=== PATIENT | male | born 1975 | race Caucasian/White ===

== ENCOUNTER 2018-04-18 18:12 | Observation (INO) | payer OTHER, SELFPAY ==
[2018-04-18] VITALS (9 sets, daily range): BP systolic 129–150; BP diastolic 73–80; PULSE 76–90; RESP 16–29; TEMP 36.4–36.6; O2SAT 94–100; BMI 35.9; BMI 35.8
--- NOTE | 2018-04-18 18:17 | EKG12_ITS ---
Test Reason : CP Blood Pressure : / mmHG Vent. Rate : 095 BPM Atrial Rate : 095 BPM P-R Int : 180 ms QRS Dur : 090 ms QT Int : 338 ms P-R-T Axes : 033 -03 037 degrees QTc Int : 424 ms Normal sinus rhythm Normal ECG Confirmed by JOSE FARR MD ([id number]), state editor DANDY SPRINGER ([id number] on 04/19/2018 5:13:06 PM Referred By: GUANAKITO/ANTONETTE Confirmed By:JOSE FARR MD
--- NOTE | 2018-04-18 18:20 | RAD_ITS ---
STUDY: X-RAY CHEST REASON FOR EXAM: Male, 42 years old. Chest pain TECHNIQUE: Frontal view of the chest COMPARISON: None. FINDINGS: There are surgical clips noted in the right apex. The lungs are clear. There are no pleural effusions. There is no pneumothorax. The heart is normal in size. The visualized osseous structures are within normal limits. RAD/Chest 1 View (Portable) IMPRESSION: No acute thoracic pathology. Electronically Signed: Cornelius Cedeño, at 19:08 EDT Tel , Service support ,
--- NOTE | 2018-04-18 18:40 | ED.RN ---
NO OLD EKG'S IN MUSE
[2018-04-18 18:42] LABS: Absolute Lymphocyte Count 4.38 X10^3/ul (0.83-4.51); Basophil# 0.02 X10^3/uL; Basophil% 0.2 % (0-1); Eosinophil# 0.29 X10^3/uL; Eosinophils% 2.3 % (0-5); Hematocrit 47.4 % (40-54); Hemoglobin 16.1 g/dl (13.0-16.5); Lymphocyte # 4.38 X10^3/ul (4.0); Lymphocyte % 35.2 % (19-41); Mean Corpuscular Hgb 29.7 pg (27.0-32.0); Mean Corpuscular Volume 87.5 fL (80-94); Mean Platelet Vol. 10.2 fl (6.2-12.0); Monocyte# 0.75 X10^3/uL; Neutrophil # 6.97 X10^3/uL (2.7-7.7); Neutrophil % 56.1 % (47-70); Platelet Count 231 K/mm3 (150-450); RBC Distribution Width CV 13.5 % (11.6-14.6); Red Blood Count 5.42 M/mm3 (4.6-6.2); White Blood Count 12.4 K/mm3 (4.4-11.0)
[2018-04-18 18:46] LABS: POSITIVE COUNT NO; POSITIVE DIFFERENTIAL NO; POSITIVE MORPHOLOGY NO
[2018-04-18 19:04] LABS: Anion Gap 7 (5-15); BUN 14 mg/dL (7-18); Calcium,Total 8.3 mg/dL (8.5-10.1); Chloride 108 mmol/L (98-107); Creatinine, Serum 0.87 mg/dL (0.70-1.30); EST Glomerular Filtration Rate 102 mL/min (>60); Est Glom Filt Rate - Afr Amer 123 mL/min (>60); Glucose 107 mg/dL (74-106); Potassium 3.5 mmol/L (3.5-5.1); Sodium Level 140 mmol/L (136-145)
--- NOTE | 2018-04-18 19:14 | ED.VISSUMM ---
- ER Visit Summary Date of Service: 04/18/18 Chief Complaint: Chest pain History of Present Illness: The patient is a 42 M presenting with chest pain. He states this started around noon today. He had severe pain in the mid chest. He states it radiated to the right side of his jaw. He had associated diaphoresis with this. He denies shortness of breath or nausea. He is a smoker. He does not currently have primary care physician. He states he has a remote history of A. fib but has not followed up for this. No PE/DVT risk factors. Physical Examination: Vitals are stable. Patient is afebrile. Alert no acute distress. HEENT exam is unremarkable. Neck is supple. Lungs are clear and equal bilaterally. Heart is regular rate and rhythm. Abdomen is soft nontender nondistended. Extremities are unremarkable. Skin is warm and dry. No focal neurologic deficit. Remainder of exam is unremarkable. Emergency Department Course and Treatment: EKG is sinus rate of 95. Chest x-ray shows no acute process. CBC, chemistries, troponin are unremarkable. Patient was given aspirin on arrival. He is resting comfortably on reevaluation. Will discuss with the hospitalist for observation. Disposition: Observation Impression: Chest pain This note was generated with Anda dictation software. It may contain incorrect words, spelling, and punctuation that were not noted in review of the chart prior to signing ED Disposition - Plan for ED Patient: Chief Complaint: Chest Pain Referrals: Care Physician,No Primary [Primary Care Provider] -
--- NOTE | 2018-04-18 19:17 | ED.DCSUM_ITS ---
- ER Visit Summary Date of Service: 04/18/18 Chief Complaint: Chest pain History of Present Illness: The patient is a 42 M presenting with chest pain. He states this started around noon today. He had severe pain in the mid chest. He states it radiated to the right side of his jaw. He had associated diaphoresis with this. He denies shortness of breath or nausea. He is a smoker. He does not currently have primary care physician. He states he has a remote history of A. fib but has not followed up for this. No PE/DVT risk factors. Physical Examination: Vitals are stable. Patient is afebrile. Alert no acute distress. HEENT exam is unremarkable. Neck is supple. Lungs are clear and equal bilaterally. Heart is regular rate and rhythm. Abdomen is soft nontender nondistended. Extremities are unremarkable. Skin is warm and dry. No focal neurologic deficit. Remainder of exam is unremarkable. Emergency Department Course and Treatment: EKG is sinus rate of 95. Chest x- ray shows no acute process. CBC, chemistries, troponin are unremarkable. Patient was given aspirin on arrival. He is resting comfortably on reevaluation. Will discuss with the hospitalist for observation. Disposition: Observation Impression: Chest pain This note was generated with TRUE [employer]wear dictation software. It may contain incorrect words, spelling, and punctuation that were not noted in review of the chart prior to signing ED Disposition - Plan for ED Patient: Chief Complaint: Chest Pain Referrals: Care Physician,No Primary [Primary Care Provider] -
[2018-04-18] MEDS: Aspirin 325 MG Tablet PO (19:20)
--- NOTE | 2018-04-18 19:52 | PCM.HP.STD ---
Problem List (1) Chest pain Status: Acute Qualifiers: Chest pain type: chest pain due to myocardial ischemia Ischemic chest pain type: stable angina pectoris Qualified Code(s): I20.8 - Other forms of angina pectoris (2) Afib Status: Chronic Qualifiers: Atrial fibrillation type: paroxysmal Qualified Code(s): I48.0 - Paroxysmal atrial fibrillation History of Present Illness Date of Admission: 04/18/18 Chief Complaint: chest pain The patient is a 42 year old M who was in his normal developed chest pain today. 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 It additionally went down his right arm and to his right jaw. Symptoms resolve spontaneously though the patient still does complain of some ongoing chest pain. Patient presented to the emergency room and had a workup that was unremarkable. Patient is being further admitted for further chest pain evaluation. Patient states that he did become diaphoretic with this though did not become short of breath. No nausea or vomiting. Patient has had chest pains intermittently related with indigestion and different from what he experienced today. [] Past Medical History Past Medical History (Chronic Problems): Chronic Problems Afib (Chronic) Medical History: Medical History (Last Updated 04/18/18 @ 20:00 by Bijan Estrella DO) Migraine G43.909 Paroxysmal A-fib I48.0 Pneumothorax J93.9 Hypertension I10 Allergies No Known Allergies Allergy (Verified 04/18/18 18:13) Home Medications: Ambulatory Orders Medication Instructions Recorded Omeprazole 20 mg PO DAILY 04/18/18 Surgical History: - - Patient had surgical decortication of a right sided spontaneous pneumothorax Psychiatric History: No pertinent psych hx Lives: Spouse/ Significant Other Smoking Status: Current every day smoker Tobacco Use: Cigars Alcohol: None Drugs: None - *Family History Maternal History Items: - - No heart disease Review of Systems Constitutional: Denies: Anorexia, Chills, Fever Eyes: Denies: Blurred vision, Double vision HEENT: Denies: Head Aches, Sinus Congestion, Sinus Drainage Cardiovascular: Reports: Chest Pain. Denies: Edema Respiratory: Denies: Cough, Shortness of breath at rest, Sputum production Gastrointestinal: Denies: Abdominal Pain, Nausea, Vomiting Genitourinary: Denies: Dysuria Musculoskeletal: Reports: Arm Pain - Right arm pain Skin: Denies: Dryness, Rash, Wounds Neurological: Reports: Blurred vision - Gets occasional visual scotomata with headaches that he experiences., Headaches - Gets 30-40 headaches per year. Patient states that he can go months without a headache and then he will have a headache persist for several days.. Denies: Focal weakness, Numbness, Tingling Psychiatric: Denies: Anxiety, Depression Endocrine: Denies: Change in Body Habitus Hematologic/ Lymphatic: Denies: Easy Bruising, Easy Bleeding, Hx of blood clot Comment: All other review systems are negative except for as mentioned above in the HPI and review of systems. VTE Information - Inpt Only VTE Present on Admission: No VTE Pharm Prophylaxis ordered?: Yes Patient Problems: Active and Suspected Problems Chest pain (Acute) - Physical Exam General: Alert, Cooperative, No apparent distress HEENT: Atraumatic, Normocephalic Oral: Moist Mucosa, No Gingival or Mucosal Lesions/ Ulcerations Neck: No Nodes, Thyroid Normal Size and Texture Lungs: Clear to auscultation, Normal air movement, No rhonchi, No wheeze Cardiovascular: Regular rate, Regular Rhythm, Normal S1, Normal S2, No murmurs Abdomen: Bowel Sounds Present, Soft, Non Tender, Non-Distended, No Hepato-splenomegaly, Obese Extremities: No edema, No Calf Tenderness Skin: No rashes, No breakdown Musculoskeletal: No Tenderness to Palpation of Joints or Extremities, No Muscle Wasting Neurological: Deep Tendon Reflexes 2+/4 and Symmetrical, Neuro grossly intact, Coordination normal Psych/Mental Status: Normal Affect, Appropriate Vital Signs Temp Pulse Resp BP Pulse Ox 36.6 C 76 18 130/79 H 100 04/18/18 19:38 04/18/18 19:38 04/18/18 19:38 04/18/18 19:38 04/18/18 19:38 Clinical Impression(s) from Imaging Studies Chest X-Ray 04/18/18 18:20 IMPRESSION: No acute thoracic pathology. Electronically Signed: Cornelius Cedeño, at 19:08 EDT Tel , Service support , EKG reviewed and showed normal sinus rhythm without any acute changes. Assessment/Plan All Active Problems Chest pain (Acute) 1. Chest pain/stable angina Workup thus far is negative ARLET score of 1 Is to cycle the pain patient's troponins and for the patient undergo a treadmill stress test on the . If troponins become elevated or patient has an abnormal stress test and cardiology will need to be involved, however, if that is all negative then anticipate patient being discharged. 2. Hypertension Had been on medication before but due to insurance reasons stopped taking it. Will monitor the patient's blood pressure was here and see if agents would be necessary upon discharge. 3. Paroxysmal atrial fibrillation Had been seeing a machine worker at the [facility] but has not followed up in some time. If patient's cardiac workup here is negative patient can follow-up with cardiology as outpatient 4. Migraines Patient averages several times per month. Recommend patient follow-up with neurology to see about using some preventative medication as outpatient. Patient not currently having any migraines at this time but does have visual scotomata prior to his migraines 5. DVT prophylaxis with Lovenox
--- NOTE | 2018-04-18 20:00 | EKG12_ITS ---
Test Reason : ADMISSION EKG Blood Pressure : / mmHG Vent. Rate : 078 BPM Atrial Rate : 078 BPM P-R Int : 194 ms QRS Dur : 100 ms QT Int : 382 ms P-R-T Axes : 036 016 032 degrees QTc Int : 435 ms Normal sinus rhythm Normal ECG Confirmed by CAMILO KENT, MARTA ([id number]), film editor DANDY SPRINGER ([id number]) on 04/21/2018 1:42:49 PM Referred By: RADHA Confirmed By:MARTA PAGE MD
--- NOTE | 2018-04-18 20:01 | HP.PCM_ITS ---
Problem List (1) Chest pain Status: Acute Qualifiers: Chest pain type: chest pain due to myocardial ischemia Ischemic chest pain type: stable angina pectoris Qualified Code(s): I20.8 - Other forms of angina pectoris (2) Afib Status: Chronic Qualifiers: Atrial fibrillation type: paroxysmal Qualified Code(s): I48.0 - Paroxysmal atrial fibrillation History of Present Illness Date of Admission: 04/18/18 Chief Complaint: chest pain The patient is a 42 year old M who was in his normal developed chest pain today. 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 It additionally went down his right arm and to his right jaw. Symptoms resolve spontaneously though the patient still does complain of some ongoing chest pain. Patient presented to the emergency room and had a workup that was unremarkable. Patient is being further admitted for further chest pain evaluation. Patient states that he did become diaphoretic with this though did not become short of breath. No nausea or vomiting. Patient has had chest pains intermittently related with indigestion and different from what he experienced today. [] Past Medical History Past Medical History (Chronic Problems): Chronic Problems Afib (Chronic) Medical History: Medical History (Last Updated 04/18/18 @ 20:00 by Bijan Estrella DO) Migraine G43.909 Paroxysmal A-fib I48.0 Pneumothorax J93.9 Hypertension I10 Allergies No Known Allergies Allergy (Verified 04/18/18 18:13) Home Medications: Ambulatory Orders Medication Instructions Recorded Omeprazole 20 mg PO DAILY 04/18/18 Surgical History: - - Patient had surgical decortication of a right sided spontaneous pneumothorax Psychiatric History: No pertinent psych hx Lives: Spouse/ Significant Other Smoking Status: Current every day smoker Tobacco Use: Cigars Alcohol: None Drugs: None - *Family History Maternal History Items: - - No heart disease Review of Systems Constitutional: Denies: Anorexia, Chills, Fever Eyes: Denies: Blurred vision, Double vision HEENT: Denies: Head Aches, Sinus Congestion, Sinus Drainage Cardiovascular: Reports: Chest Pain. Denies: Edema Respiratory: Denies: Cough, Shortness of breath at rest, Sputum production Gastrointestinal: Denies: Abdominal Pain, Nausea, Vomiting Genitourinary: Denies: Dysuria Musculoskeletal: Reports: Arm Pain - Right arm pain Skin: Denies: Dryness, Rash, Wounds Neurological: Reports: Blurred vision - Gets occasional visual scotomata with headaches that he experiences., Headaches - Gets 30-40 headaches per year. Patient states that he can go months without a headache and then he will have a headache persist for several days.. Denies: Focal weakness, Numbness, Tingling Psychiatric: Denies: Anxiety, Depression Endocrine: Denies: Change in Body Habitus Hematologic/ Lymphatic: Denies: Easy Bruising, Easy Bleeding, Hx of blood clot Comment: All other review systems are negative except for as mentioned above in the HPI and review of systems. VTE Information - Inpt Only VTE Present on Admission: No VTE Pharm Prophylaxis ordered?: Yes Patient Problems: Active and Suspected Problems Chest pain (Acute) - Physical Exam General: Alert, Cooperative, No apparent distress HEENT: Atraumatic, Normocephalic Oral: Moist Mucosa, No Gingival or Mucosal Lesions/ Ulcerations Neck: No Nodes, Thyroid Normal Size and Texture Lungs: Clear to auscultation, Normal air movement, No rhonchi, No wheeze Cardiovascular: Regular rate, Regular Rhythm, Normal S1, Normal S2, No murmurs Abdomen: Bowel Sounds Present, Soft, Non Tender, Non-Distended, No Hepato- splenomegaly, Obese Extremities: No edema, No Calf Tenderness Skin: No rashes, No breakdown Musculoskeletal: No Tenderness to Palpation of Joints or Extremities, No Muscle Wasting Neurological: Deep Tendon Reflexes 2+/4 and Symmetrical, Neuro grossly intact, Coordination normal Psych/Mental Status: Normal Affect, Appropriate Vital Signs Temp Pulse Resp BP Pulse Ox 36.6 C 76 18 130/79 H 100 04/18/18 19:38 04/18/18 19:38 04/18/18 19:38 04/18/18 19:38 04/18/18 19:38 Clinical Impression(s) from Imaging Studies Chest X-Ray 04/18/18 18:20 IMPRESSION: No acute thoracic pathology. Electronically Signed: Cornelius Cedeño, at 19:08 EDT Tel , Service support , EKG reviewed and showed normal sinus rhythm without any acute changes. Assessment/Plan All Active Problems Chest pain (Acute) 1. Chest pain/stable angina * Workup thus far is negative * ARLET score of 1 * Is to cycle the pain patient's troponins and for the patient undergo a treadmill stress test on the . * If troponins become elevated or patient has an abnormal stress test and cardiology will need to be involved, however, if that is all negative then anticipate patient being discharged. 2. Hypertension * Had been on medication before but due to insurance reasons stopped taking it. Will monitor the patient's blood pressure was here and see if agents would be necessary upon discharge. 3. Paroxysmal atrial fibrillation * Had been seeing a marketing analyst at the [facility] but has not followed up in some time. * If patient's cardiac workup here is negative patient can follow-up with cardiology as outpatient 4. Migraines * Patient averages several times per month. Recommend patient follow-up with neurology to see about using some preventative medication as outpatient. Patient not currently having any migraines at this time but does have visual scotomata prior to his migraines 5. DVT prophylaxis with Lovenox
[2018-04-19 02:05] VITALS: BP 122/67; PULSE 61; RESP 20; TEMP 36.7; O2SAT 98
[2018-04-19 03:01] VITALS: PULSE 62
[2018-04-19 05:34] LABS: Absolute Lymphocyte Count 3.28 X10^3/ul (0.83-4.51); Absolute Neutrophil Count 6.3 X10^3/uL (2.0-7.7); Basophil# 0.02 X10^3/uL; Basophil% 0.2 % (0-1); Eosinophil# 0.31 X10^3/uL; Eosinophils% 2.8 % (0-5); Hematocrit 47.7 % (40-54); Hemoglobin 15.9 g/dl (13.0-16.5); Lymphocyte # 3.28 X10^3/ul (4.0); Lymphocyte % 29.5 % (19-41); Mean Corp Hgb Conc 33.3 g/gl (32-36); Mean Corpuscular Hgb 29.6 pg (27.0-32.0); Mean Corpuscular Volume 88.8 fL (80-94); Mean Platelet Vol. 10.2 fl (6.2-12.0); Monocyte# 1.21 X10^3/uL; Monocyte% 10.9 % (0-10); Neutrophil % 56.5 % (47-70); Platelet Count 207 K/mm3 (150-450); RBC Distribution Width CV 13.6 % (11.6-14.6); RBC Distribution Width SD 44.3 fl (35.1-43.9); Red Blood Count 5.37 M/mm3 (4.6-6.2); White Blood Count 11.1 K/mm3 (4.4-11.0)
[2018-04-19 05:38] LABS: International Normalized Ratio 0.9; POSITIVE COUNT NO; POSITIVE DIFFERENTIAL NO; POSITIVE MORPHOLOGY NO; Prothrombin Time (Protime)PT. 12.6 SECONDS (11.7-14.9)
[2018-04-19 05:39] LABS: Partial Thromboplast Time 30.8 Seconds (24.1-36.2)
--- NOTE | 2018-04-19 05:55 | EKG12_ITS ---
Test Reason : AM EKG Blood Pressure : / mmHG Vent. Rate : 068 BPM Atrial Rate : 068 BPM P-R Int : 180 ms QRS Dur : 108 ms QT Int : 414 ms P-R-T Axes : 019 -02 014 degrees QTc Int : 440 ms Normal sinus rhythm Inferior infarct , age undetermined Abnormal ECG Confirmed by CAMILO KENT, MARTA ([id number]), acquisition editor DANDY SPRINGER ([id number]) on 04/21/2018 1:41:25 PM Referred By: RADHA Confirmed By:MARTA PAGE MD
[2018-04-19 06:12] VITALS: BP 131/82; PULSE 66; RESP 20; TEMP 36.6; O2SAT 98
[2018-04-19 06:17] LABS: Anion Gap 7 (5-15); BUN 13 mg/dL (7-18); BUN/Creat Ratio 17.6 RATIO (10-20); Chloride 109 mmol/L (98-107); Cholesterol 166 mg/dL (200); Creatinine, Serum 0.74 mg/dL (0.70-1.30); EST Glomerular Filtration Rate 123 mL/min (>60); Est Glom Filt Rate - Afr Amer 149 mL/min (>60); Glucose 106 mg/dL (74-106); High Density Lipoprotein 18 mg/dL; Potassium 4.4 mmol/L (3.5-5.1); Sodium Level 143 mmol/L (136-145); Triglycerides 564 mg/dL
[2018-04-19] MEDS: Aspirin E.C. 81 MG Tablet PO (06:19)
[2018-04-19] MEDS: 0.9% NaCl Peripheral Flush Adult/Peds IV (06:19)
[2018-04-19 06:56] VITALS: PULSE 62
[2018-04-19] MEDS: Pantoprazole Sodium 20 MG Tablet PO (09:54)
[2018-04-19 09:55] VITALS: BP 129/76; PULSE 85; RESP 16; TEMP 36.7; O2SAT 97
[2018-04-19 11:10] VITALS: PULSE 78
--- NOTE | 2018-04-19 13:00 | STRESSREP_ITS ---
Stress Test Report Exercise myocardial perfusion stress test. 42-year-old male with a history of chest pain. Stress protocol: Resting EKG demonstrated normal sinus rhythm with a rate of 61 bpm normal intervals and noted resting blood pressure is 150/88 mmHg. The patient exercised according to regular Galo protocol for a total duration of 9 minutes the maximum heart rate attained was 173 bpm which was 97% of maximum predicted heart rate. Patient completed stage III of the Galo protocol. The maximum workload attained was 10.1 metabolic equivalents. At rest there were no ST or T -wave changes noted suggest ischemia peak exercise upsloping ST changes only were noted with no meet the criteria for ischemia. No clinical angina was noted the test was terminated due to leg fatigue. The resting blood pressure is 150/88 with a peak blood pressure 210/98 mmHg. Hypertensive response to exercise was noted. Myocardial perfusion protocol. 14.4 mCi of technetium 99m sestamibi was injected at rest. The patient exercised according to regular Galo protocol for total duration of 9 minutes. At peak exercise 45.0 mCi of technetium 99m sestamibi was injected stress images were obtained stress and rest images were reconstructed and compared in the short axis vertical long horizontal long axis. Gated images were also obtained Perfusion SPECT analysis: Review of the stress images demonstrate normal uptake of tracer noted in all areas of the myocardium. There is mild thinning noted in the apex noted. This is present on the stress and rest images to a similar extent. No areas of reversibility are noted suggest ischemia. Gated SPECT analysis: The gated ejection fraction is 68%. Conclusion: Normal exercise myocardial perfusion stress test at a high workload. No clinical angina noted Hypertensive response to exercise. Preserved ejection fraction.
--- NOTE | 2018-04-19 13:33 | PCM.DC ---
- Discharge Diagnoses Current Active Problems: Current Active and Chronic Problems (Last Updated 04/18/18 @ 20:00 by Bijan Estrella DO) Chest pain (Acute) Afib (Chronic) You will use the following diet at home:: Regular Discharge Activity: Return to Normal Activity Instructions: ED Chest Pain NonCardiac Allergies/Adverse Reactions: Allergies No Known Allergies Allergy (Verified 04/18/18 18:13) Medications to take at Discharge Omeprazole 20 mg PO DAILY 04/18/18 Primary Care Physician: Care Physician,No Primary [Primary Care Provider] - Within 2 Weeks
--- NOTE | 2018-04-19 13:34 | DS.PCM_ITS ---
Discharge Date and Diagnosis - Problem List Patient Problems: Active and Suspected Problems (Last Updated 04/18/18 @ 20:00 by Bijan Estrella DO ) Chest pain (Acute) Date of Admission: 04/18/18 Date of Discharge: 04/19/18 - Primary Discharge Diagnosis Active and Suspected Problems (Last Updated 04/18/18 @ 20:00 by Bijan Estrella DO ) Chest pain (Acute) - Secondary Discharge Diagnosis Chronic Problems (Last Updated 04/18/18 @ 20:00 by Bijan Estrella DO) Afib (Chronic) Hospital Course and Treatment Imaging Results: 04/19/18 08:04 Nuclear Stress Test - Treadmhi [NM] Routine Summary of Care Provided: The patient is a 42 year old M who presented to the emergency room after he developed chest pain. 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 He was evaluated in the emergency room and then placed in the progressive care unit, he rule out acute coronary syndrome with negative cardiac enzymes. He then underwent a stress test that was negative for ischemia. The patient was discharged home in a stable condition symptom-free and recommended to follow with the primary care doctor. Discharge Diet: No Restrictions Discharge Activity: Return to Normal Activity Home Medications: Medications to take at Discharge Omeprazole 20 mg PO DAILY 04/18/18 Primary Care Physician: Care Physician,No Primary [Primary Care Provider] - Within 2 Weeks Patient Instructions: ED Chest Pain NonCardiac Medical Necessity - Tobacco Use Smoking Status: Current every day smoker Tobacco Use: Cigars Meaningful Use Info Meaningful Use Diagnoses (Choose all that apply): None applicable Code Visit OBSV E&M: 97422 Observation care discharge
== END 2018-04-19 13:34 | disposition home or self-care (01) ==
LOC: ED 19:46 → PCU 04-19 07:29
PROVIDERS: Emergency Provider Emergency Medicine; Visit Provider Internal Medicine
DX: R07.89 Other chest pain (principal); I48.0 Paroxysmal atrial fibrillation; I10 Essential (primary) hypertension; Z79.899 Other long term (current) drug therapy; F17.290 Nicotine dependence, other tobacco product, uncomplicated; G43.909 Migraine, unspecified, not intractable, without status migrainosus; K21.9 Gastro-esophageal reflux disease without esophagitis
CPT/HCPCS: 36415; 71045; 78452; 80048; 80061; 84484; 85025; 85610; 85730; 93005; 93017; 97802; 99218; 99285; 99406; A9500; A4216; G0378

== ENCOUNTER 2018-08-22 08:26 | Day surgery (SDC) | payer OTHER, SELFPAY ==
[2018-08-22 08:40] VITALS: BP 137/79; PULSE 73; RESP 16; TEMP 36.7; O2SAT 97; BMI 35.1
[2018-08-22 10:10] VITALS: BP 118/72; BP 137/79; PULSE 74; RESP 18; TEMP 36.6; O2SAT 94
--- NOTE | 2018-08-22 10:12 | OP.ENDO_ITS ---
Patient Name: Fish Arceo Procedure Date: 08/22/2018 9:45 AM Date of : 1975 Age: 42 Procedure: Colonoscopy Indications: Hematochezia Providers: Coy Child MD Medicines: Monitored Anesthesia Care Patient Profile: This is a 42 year old male. Last Colonoscopy: none. The patient's first colonoscopy is today. Complications: No immediate complications. Procedure: Pre-Anesthesia Assessment: - Prior to the procedure, a History and Physical was performed, and patient medications and allergies were reviewed. The patient's tolerance of previous anesthesia was also reviewed. The risks and benefits of the procedure and the sedation options and risks were discussed with the patient. All questions were answered, and informed consent was obtained. Prior Anticoagulants: The patient has taken no previous anticoagulant or antiplatelet agents. After reviewing the risks and benefits, the patient was deemed in satisfactory condition to undergo the procedure. After I obtained informed consent, the scope was passed under direct vision. Throughout the procedure, the patient's blood pressure, pulse, and oxygen saturations were monitored continuously. The colonoscope was introduced through the anus and advanced to the cecum, identified by the appendiceal orifice, ileocecal valve and palpation. The colonoscopy was performed without difficulty. The patient tolerated the procedure well. The quality of the bowel preparation was good. Scope In: 9:53:44 AM Scope Withdrawal Time 0 hours 6 minutes 9 seconds Scope Out: 10:05:49 AM Total Procedure Duration Time 0 hours 12 minutes 5 seconds Findings: The perianal and digital rectal examinations were normal. The entire examined colon appeared normal on direct and retroflexion views. Impression: - The entire examined colon is normal on direct and retroflexion views. - No specimens collected. Recommendation: - Discharge patient to home. - Resume previous diet. - Continue present medications. - Refer to a adolescent coordinator if symptoms persist for capsule endoscopy. - Repeat colonoscopy in 10 years for screening purposes. Procedure Code(s): --- Professional --- 16120, Colonoscopy, flexible; diagnostic, including collection of specimen(s) by brushing or washing, when performed (separate procedure) Diagnosis Code(s): --- Professional --- K92.1, Melena (includes Hematochezia) CPT copyright 2017 [employer]. All rights reserved. The codes documented in this report are preliminary and upon windows systems architect review may be revised to meet current compliance requirements. Coy Child MD 08/22/2018 10:12:38 AM This report has been signed electronically. Number of Addenda: 0 Note Initiated On: 08/22/2018 9:45 AM
[2018-08-22 10:15] VITALS: BP 118/66; BP 137/79; PULSE 76; RESP 18; O2SAT 96
[2018-08-22 10:20] VITALS: BP 114/71; BP 137/79; PULSE 62; RESP 18; O2SAT 95
[2018-08-22 10:25] VITALS: BP 110/52; BP 137/79; PULSE 60; RESP 16; TEMP 36.7; O2SAT 100
[2018-08-22 10:39] VITALS: BP 137/79
== END 2018-08-22 10:40 | disposition home or self-care (01) ==
LOC: EN 08:26
PROVIDERS: Referring Provider Surgery; Visit Provider Surgery
PROC: 0DJD8ZZ Inspection of Lower Intestinal Tract, Via Natural or Artificial Opening Endoscopic (ICD-10-PCS; CPT 45378; principal; 2018-08-22 09:25)
DX: K92.1 Melena (principal); K21.9 Gastro-esophageal reflux disease without esophagitis; I48.0 Paroxysmal atrial fibrillation; I10 Essential (primary) hypertension; F17.200 Nicotine dependence, unspecified, uncomplicated; Z79.899 Other long term (current) drug therapy
CPT/HCPCS: 45378; J7120

== ENCOUNTER → 2018-11-03 15:36 | Outpatient (CLI) | payer OTHER, SELFPAY ==
[2018-11-03 15:46] LABS: Bacteria 0 SEEN /hpf (None Seen); Mucous, Urine 0 SEEN /hpf (<or=2+); Red Blood Cells-Urine 0 SEEN /hpf (0-5); White Blood Cells 0 SEEN /hpf (0-5)
[2018-11-03 17:46] LABS: Color, Urine Yellow (Yellow); Glucose, Dipstick Normal (Normal); Ketone-Dipstick Negative (Negative); Leukocyte Esterase-Dipstick Negative /ul (Negative); Nitrite-Dipstick Negative (Negative); Occult Blood-Urine Negative /ul (Negative); Protein-Dipstick Negative (Negative); Specific Gravity, Urine 1.015 (1.002-1.030); Urine Bilirubin Dipstick Negative (Negative); Urine Clarity Clear (Clear); Urine Urobilinogen Normal (Normal)
[2018-11-03 17:54] LABS: Squamous Epithelial Cells - UA 0-5 SEEN /hpf (0-5)
[2018-11-03 18:01] LABS: Absolute Lymphocyte Count 2.75 X10^3/ul (0.83-4.51); Absolute Neutrophil Count 5.5 X10^3/uL (2.0-7.7); Basophil# 0.02 X10^3/uL; Basophil% 0.2 % (0-1); Eosinophil# 0.11 X10^3/uL; Eosinophils% 1.2 % (0-5); Hematocrit 44.9 % (40-54); Hemoglobin 15.5 g/dl (13.0-16.5); Lymphocyte # 2.75 X10^3/ul (4.0); Mean Corp Hgb Conc 34.5 g/gl (32-36); Mean Corpuscular Hgb 29.6 pg (27.0-32.0); Mean Corpuscular Volume 85.7 fL (80-94); Mean Platelet Vol. 10.8 fl (6.2-12.0); Monocyte# 0.74 X10^3/uL; Monocyte% 8.1 % (0-10); Neutrophil # 5.52 X10^3/uL (2.7-7.7); Neutrophil % 60.2 % (47-70); Platelet Count 278 K/mm3 (150-450); RBC Distribution Width CV 12.7 % (11.6-14.6); RBC Distribution Width SD 39.5 fl (35.1-43.9); Red Blood Count 5.24 M/mm3 (4.6-6.2); White Blood Count 9.2 K/mm3 (4.4-11.0)
[2018-11-03 18:06] LABS: Hemoglobin A1c 5.5 % (4.2-6.3)
[2018-11-03 18:07] LABS: ALB/GLOB Ratio 1.1 RATIO (0.9-2.4); AST(SGOT) 23 U/L (15-37); Alanine Aminotransfer ALT/SGPT 32 U/L (16-61); Albumin, Serum 4.1 g/dL (3.2-5.0); Alkaline Phosphatase 67 U/L (45-117); Anion Gap 9 (5-15); BUN 15 mg/dL (7-18); BUN/Creat Ratio 17.5 RATIO (10-20); Calcium,Total 8.6 mg/dL (8.5-10.1); Chloride 103 mmol/L (98-107); Cholesterol 148 mg/dL (200); Creatinine, Serum 0.86 mg/dL (0.70-1.30); EST Glomerular Filtration Rate 103 mL/min (>60); Est Glom Filt Rate - Afr Amer 125 mL/min (>60); Globulin 3.6 g/dL (2.2-4.2); Glucose 79 mg/dL (74-106); High Density Lipoprotein 30 mg/dL; Potassium 3.9 mmol/L (3.5-5.1); Protein, Total 7.7 g/dL (6.4-8.2); Sodium Level 139 mmol/L (136-145); Triglycerides 181 mg/dL; Very Low Density Lipoprotein 36 mg/dL (5-40)
[2018-11-03 18:16] LABS: POSITIVE COUNT NO; POSITIVE DIFFERENTIAL NO; POSITIVE MORPHOLOGY NO
== END ==
PROVIDERS: Family Provider Family Medicine; PCP Family Medicine; Referring Provider Family Medicine; Visit Provider Family Medicine
DX: E66.9 Obesity, unspecified (principal); R35.8 Other polyuria
CPT/HCPCS: 36415; 80053; 80061; 81001; 83036; 84443; 85025